=== PATIENT | male | born 1990 | race African-American/Black ===

== ENCOUNTER 2024-01-17 05:09 | Emergency (ER) | payer OTHER ==
[~2024-01-17] VITALS: Ht 190.5 cm; Wt 98.0 kg
[2024-01-17 05:13] VITALS: PULSE 70; O2SAT 98
[2024-01-17 05:18] VITALS: BP 125/84; RESP 18; O2SAT 99
[2024-01-17 08:30] VITALS: TEMP 98.4
[2024-01-17] MEDS: ACETAMINOPHEN 325MG TABLET PO ONE (08:30)
[2024-01-17] MEDS: LIDOCAINE HCL/PF 1% 10 MG/ML 5ML VIAL INFIL ONE (08:30)
[2024-01-17] MEDS: TETANUS, DIPHTHERIA, PERTUSSIS VAC/PF 0.5ML (>10YR OLD) IM ONE (08:30)
== END 2024-01-17 10:38 | disposition home or self-care (01) ==
LOC: ER 05:25
DX: S61.412A Laceration without foreign body of left hand, initial encounter (principal); X58.XXXA Exposure to other specified factors, initial encounter; Y93.89 Activity, other specified; Y92.89 Other specified places as the place of occurrence of the external cause; Y99.8 Other external cause status
CPT/HCPCS: 73120; 90715; 12001; 90471; 99283; J3490; Z7610